=== PATIENT | female | born 1970 | race Caucasian/White ===

== ENCOUNTER 2019-12-09 09:29 | Emergency (ER) | payer BC ==
[2019-12-09 09:38] VITALS: BP 162/96
[2019-12-09] MEDS ORDERED: DEXAMETHASONE 10 MG/ML VIAL PO STA (09:51)
[2019-12-09] MEDS ORDERED: CHERRY SYRUP 10 ML UDC PO ONE (09:51)
--- NOTE | 2019-12-09 09:54 | ED Physician Documentation ---
PD HPI URI - Stated complaint Stated Complaint: COUGH, EAR PX - Chief complaint Chief Complaint: Heent - History obtained from History obtained from: Patient, Family - History of Present Illness Timing - onset: How many days ago (15) Timing duration: Days (15) Timing details: Gradual onset, Still present Associated symptoms: Ear pain, Nasal congestion, Rhinorrhea, Sinus pain, Sore throat, Dry cough Contributing factors: Sick contact Improves by: Rest, Medication Similar symptoms before: Diagnosis (sinusitis and bronchitis) Recently seen: Not recently seen - Additional information Additional information: 49-year-old female with a history of asthma has been around her grandchildren and she got a cold more than 2 weeks ago as did her . He recovered in about a week and she has had persistence of symptoms and now has pressure and pain in her sinuses and a headache on the left side including pain in the left ear. Her sore throat is improved she has not had to use her inhaler with this illness and she is not producing any phlegm. She does have a lot of pressure in both her frontal and maxillary sinuses. She has been taking a lot of Sudafed. Review of Systems Constitutional: reports: Myalgias, Fatigue. denies: Fever, Chills Eyes: denies: Decreased vision Ears: reports: Ear pain Nose: reports: Rhinorrhea / runny nose, Congestion Throat: reports: Sore throat Cardiac: denies: Chest pain / pressure, Palpitations Respiratory: reports: Cough, Wheezing. denies: Dyspnea GI: denies: Abdominal Pain, Nausea, Vomiting : denies: Dysuria PD PAST MEDICAL HISTORY - Present Medications Home Medications: Ambulatory Orders Medication Instructions Recorded Confirmed Acetaminophen [Tylenol] 650 mg PO ONCE 12/09/19 12/09/19 Azithromycin [Zithromax] 250 mg PO DAILY #6 tablet 12/09/19 Hydrocodone/Acetaminophen 1 each PO ONCE PRN 12/09/19 12/09/19 [Hydrocodone-Acetamin 5-325 mg] Pseudoephedrine [Sudafed] 60 mg PO ONCE 12/09/19 12/09/19 - Allergies Allergies/Adverse Reactions: Allergies Allergy/AdvReac Type Severity Reaction Status Date / Time amoxicillin AdvReac Nausea Verified 12/09/19 09:38 codeine AdvReac Nausea Verified 12/09/19 09:38 PD ED PE NORMAL - Vitals Vital signs reviewed: Yes (hypertensive ) - General General: Alert and oriented X 3, No acute distress, Well developed/nourished - HEENT HEENT: Atraumatic, PERRL, EOMI, Other (The right TM is not visible secondary to cerumen the left TM appears clear it is partially obstructed by cerumen. The pharynx has some petechiae on the soft palate. There is point tenderness to the maxillary sinus on the left and less on the right. There is pressure to the frontal sinuses bilaterally.) - Neck Neck: Supple, no meningeal sign, No bony TTP - Cardiac Cardiac: RRR, No murmur - Respiratory Respiratory: No respiratory distress, Clear bilaterally - Abdomen Abdomen: Soft, Non tender - Back Back: No CVA TTP, No spinal TTP - Derm Derm: Normal color, Warm and dry, No rash - Extremities Extremities: No deformity, No tenderness to palpate, Normal ROM s pain, No edema, No calf tenderness / cord - Neuro Neuro: patch setter 2-12 intact, No motor deficit, No sensory deficit, Normal speech Eye Opening: Spontaneous Motor: Obeys Commands Verbal: Oriented GCS Score: 15 Results - Vitals Vitals: Vital Signs - 24 hr 12/09/19 09:34 Temperature 36.5 C Heart Rate 93 Respiratory 18 Rate Blood Pressure 162/96 H O2 Saturation 97 Oxygen O2 Source Room air PD MEDICAL DECISION MAKING - ED course Complexity details: considered differential, d/w patient, d/w family ED course: Previously well 49-year-old female with cough and congestion for 15 days duration appears now to have had a bimodal illness with sinusitis after a viral URI. 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 Departure - Departure Disposition: Home, Self Care Clinical Impression: Sinusitis Qualifiers: Sinusitis location: maxillary Chronicity: acute Recurrence: non-recurrent Qualified Code(s): J01.00 - Acute maxillary sinusitis, unspecified Condition: Stable Instructions: ED Sinusitis Abx Tx Follow-Up: Vera Patel MD [Primary Care Provider] - Prescriptions: Azithromycin [Zithromax] 250 mg PO DAILY #6 tablet
== END 2019-12-09 10:03 | disposition home or self-care (01) ==
LOC: ED 09:29
DX: J01.00 Acute maxillary sinusitis, unspecified (principal); J06.9 Acute upper respiratory infection, unspecified; H61.23 Impacted cerumen, bilateral
CPT/HCPCS: 99282; 99284; A9270

== ENCOUNTER 2020-08-20 15:13 | Outpatient (CLI) | payer BC | END 2020-08-20 15:14 | disposition short-term general hospital (02) | LOC: EMS 15:13 | PROVIDERS: ATTEND Surgery | DX: R07.9 Chest pain, unspecified (principal); R53.1 Weakness | CPT/HCPCS: A0425; A0427 ==

== ENCOUNTER 2020-08-26 07:38 | Outpatient (CLI) | payer BC | END 2020-08-26 07:39 | disposition short-term general hospital (02) | LOC: EMS 07:38 | PROVIDERS: ATTEND Surgery | DX: R07.89 Other chest pain (principal) | CPT/HCPCS: A0425; A0427 ==

== ENCOUNTER 2021-12-30 14:57 | Outpatient (CLI) | payer OTHER | END 2021-12-30 14:58 | disposition left against medical advice (07) | LOC: EMS 14:57 | DX: I10 Essential (primary) hypertension (principal); F41.9 Anxiety disorder, unspecified ==

== ENCOUNTER 2021-12-30 16:22 | Emergency (ER) | payer BC, OTHER ==
--- NOTE | 2021-12-30 17:12 | ED Physician Documentation ---
History of Present Illness - Stated complaint Stated Complaint: HIGH BLOOD PRESSURE/POUNDING IN EARS - Chief complaint Chief Complaint: Cardiac - History obtained from History obtained from: Patient - Additonal information Additional information: 51 yo female with Hx STEMI and HTN presents with elevated BPs. Had pulsing in ears last night, better today. Took BP today at 143/84. Got nervous. No CP or SOA. Meds Lorazepam 0.5mg BID Metoprolol 100mg daily ASA 81 daily atorva 80mg daily Review of Systems Constitutional: denies: Fever, Chills Eyes: reports: Reviewed and negative Cardiac: denies: Chest pain / pressure, Palpitations Respiratory: denies: Dyspnea, Cough PD PAST MEDICAL HISTORY - Past Medical History Past Medical History: Yes Cardiovascular: Hypertension, [place] - Present Medications Home Medications: Ambulatory Orders Medication Instructions Recorded Confirmed Acetaminophen [Tylenol] 650 mg PO ONCE 12/09/19 12/09/19 Azithromycin [Zithromax] 250 mg PO DAILY #6 tablet 12/09/19 Hydrocodone/Acetaminophen 1 each PO ONCE PRN 12/09/19 12/09/19 [Hydrocodone-Acetamin 5-325 mg] Pseudoephedrine [Sudafed] 60 mg PO ONCE 12/09/19 12/09/19 - Allergies Allergies/Adverse Reactions: Allergies Allergy/AdvReac Type Severity Reaction Status Date / Time pregabalin [From Lyrica] Allergy Unknown Verified 12/30/21 16:35 amoxicillin AdvReac Nausea Verified 12/30/21 16:35 codeine AdvReac Nausea Verified 12/30/21 16:35 - Social History Does the pt smoke?: No - Family History Family history: reports: Non contributory PD ED PE NORMAL - Vitals Vital signs reviewed: Yes - General General: Alert and oriented X 3, No acute distress - Neck Neck: Supple, no meningeal sign, No bony TTP - Cardiac Cardiac: RRR, No murmur - Respiratory Respiratory: No respiratory distress, Clear bilaterally - Abdomen Abdomen: Non tender, Non distended - Back Back: No CVA TTP, No spinal TTP - Derm Derm: Normal color, Warm and dry - Neuro Neuro: Alert and oriented X 3, Normal speech Eye Opening: Spontaneous Motor: Obeys Commands Verbal: Oriented GCS Score: 15 Results - Vitals Vitals: Vital Signs - 24 hr 12/30/21 12/30/21 16:28 16:35 Temperature 36.7 C 36.7 C Heart Rate 77 77 Respiratory 18 18 Rate Blood Pressure 152/78 H 152/78 H O2 Saturation 98 98 Oxygen O2 Source Room air - EKG (time done) 1813 Rate: Rate (enter#) (61) Rhythm: NSR [place]: Normal Intervals: Normal [place] QRS: Normal Ischemia: Non specific changes PD MEDICAL DECISION MAKING - ED course ED course: 51-year-old woman with elevated blood pressure. She has a history of CA and is under a lot of stress. She had pulsing in her ears last night but this is gone. No ischemic changes on EKG and no chest pain or sweating. She was on losartan previously and may restart this,. Departure - Departure Disposition: 01 Home, Self Care Clinical Impression: Elevated blood pressure reading Condition: Good Record reviewed to determine appropriate education?: Yes Instructions: ED HTN Established Comments: If blood pressure remains elevated, you can start taking your losartan again. Otherwise continue current medications, focus on stress control and low salt diet. Return for new or worsening symptoms. Follow-up with your primary care physician.
[2021-12-30 18:55] VITALS: BP 138/93
== END 2021-12-30 18:55 | disposition home or self-care (01) ==
LOC: ED 16:22
DX: I10 Essential (primary) hypertension (principal); I25.2 Old myocardial infarction
CPT/HCPCS: 93005; 99282; 99283

== ENCOUNTER 2022-02-21 15:17 | Emergency (ER) | payer OTHER ==
[2022-02-21 15:44] LABS: BASOPHILS % (AUTO) 0.4 %; EOSINOPHILS # (AUTO) 0.1 10^3/uL (0.0-0.7); HCT - HEMATOCRIT 45.2 % (37.0-47.0); HGB - HEMOGLOBIN 14.4 g/dL (12.0-16.0); LYMPHOCYTES # (AUTO) 1.8 10^3/uL (1.5-3.5); LYMPHOCYTES % (AUTO) 25.6 %; MEAN CORPUSCULAR HEMOGLOBIN 29.6 pg (27.0-31.0); MEAN CORPUSCULAR HGB CONC 31.9 g/dL (32.0-36.0); MEAN CORPUSCULAR VOLUME 92.8 fL (81.0-99.0); MEAN PLATELET VOLUME 9.4 fL (7.9-10.8); MONOCYTES # (AUTO) 0.4 10^3/uL (0.0-1.0); NEUTROPHILS # (AUTO) 4.8 10^3/uL (1.5-6.6); NEUTROPHILS % (AUTO) 66.9 %; PLT - PLATELET COUNT 290 10^3/uL (130-450); RED BLOOD COUNT 4.87 10^6/uL (4.20-5.40); RED CELL DISTRIBUTION WIDTH 12.1 % (12.0-15.0); WHITE BLOOD COUNT 7.1 x10^3/uL (4.8-10.8)
--- NOTE | 2022-02-21 15:49 | ED Physician Documentation ---
History of Present Illness - Stated complaint Stated Complaint: CHEST DISCOMFORT - Chief complaint Chief Complaint: Cardiac - Additonal information Additional information: 51-year-old female presents to the emergency department for evaluation of chest discomfort. She reports having a STEMI approximately 18 months ago. She has 1 stent in her LAD. She was treated at [facility]. Due to a history of anxiety and PTSD she states that she always has some chest discomfort. She typically takes lorazepam 0.5 mg daily to help manage this. But over the last few days she has had more chest discomfort then she otherwise would. She noticed yesterday with activities that it got worse so she went to a local walk-in clinic where she had an EKG done that she was reportedly told was normal but was advised to come to the ER. Patient's father at 48 of a STEMI. Patient is not a smoker. She is followed by Dr. Dumont healthcare customer service through [facility]. She is scheduled to undergo nuclear stress test at the end of February. Meds: Aspirin 81 mg daily, metoprolol, 80 mg statin daily, as needed lorazepam, as needed hydrocodone. Review of Systems Constitutional: reports: Reviewed and negative Ears: reports: Reviewed and negative Nose: reports: Reviewed and negative Throat: reports: Reviewed and negative Cardiac: reports: Chest pain / pressure. denies: Palpitations, Pedal edema, Calf pain Respiratory: denies: Dyspnea GI: denies: Nausea, Vomiting : reports: Reviewed and negative Skin: reports: Reviewed and negative Musculoskeletal: reports: Reviewed and negative PD PAST MEDICAL HISTORY - Past Medical History Past Medical History: Yes Cardiovascular: Hypertension, [place] - Present Medications Home Medications: Ambulatory Orders Medication Instructions Recorded Confirmed Acetaminophen [Tylenol] 650 mg PO ONCE 12/09/19 12/09/19 Azithromycin [Zithromax] 250 mg PO DAILY #6 tablet 12/09/19 Hydrocodone/Acetaminophen 1 each PO ONCE PRN 12/09/19 12/09/19 [Hydrocodone-Acetamin 5-325 mg] Pseudoephedrine [Sudafed] 60 mg PO ONCE 12/09/19 12/09/19 - Allergies Allergies/Adverse Reactions: Allergies Allergy/AdvReac Type Severity Reaction Status Date / Time pregabalin [From Lyrica] Allergy Unknown Verified 02/21/22 15:19 amoxicillin AdvReac Nausea Verified 02/21/22 15:19 codeine AdvReac Nausea Verified 02/21/22 15:19 - Social History Does the pt smoke?: No Smoking Status: Never smoker Does the pt drink ETOH?: No Does the pt have substance abuse?: No - Immunizations Immunizations are current?: No PD ED PE NORMAL - General General: Alert and oriented X 3, No acute distress, Well developed/nourished - Cardiac Cardiac: RRR, No murmur, No gallop - Respiratory Respiratory: No respiratory distress, Clear bilaterally - Abdomen Abdomen: Soft, Non tender - Derm Derm: Normal color, Warm and dry, No rash - Extremities Extremities: No deformity, No tenderness to palpate, Normal ROM s pain - Neuro Neuro: Alert and oriented X 3, 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 Eye Opening: Spontaneous Motor: Obeys Commands Verbal: Oriented GCS Score: 15 - Psych Psych: Normal mood Results - Vitals Vitals: Vital Signs - 24 hr 02/21/22 02/21/22 15:20 15:43 Temperature 36.5 C Heart Rate 73 64 Respiratory 16 16 Rate Blood Pressure 147/83 H O2 Saturation 100 100 Oxygen O2 Source Room air - EKG (time done) 1533 Rate: Rate (enter#) (68) Rhythm: NSR [place]: Normal Intervals: Prolonged [place], Prolonged QT Ischemia: Non specific changes Compare to prior EKG: Old EKG unavailable Computer interpretation: Agree with computer - Labs Labs: Laboratory Tests 02/21/22 02/21/22 02/21/22 15:37 15:37 15:37 WBC 7.1 RBC 4.87 Hgb 14.4 Hct 45.2 MCV 92.8 MCH 29.6 MCHC 31.9 L RDW 12.1 Plt Count 290 MPV 9.4 Neut # (Auto) 4.8 Lymph # (Auto) 1.8 Stone # (Auto) 0.4 Eos # (Auto) 0.1 Baso # (Auto) 0.0 Absolute Nucleated RBC 0.00 Nucleated RBC % 0.0 Sodium 138 Potassium 3.7 Chloride 101 Carbon Dioxide 28 Anion Gap 9.0 BUN 18 Creatinine 0.6 Estimated GFR (MDRD) 105 Glucose 103 H Calcium 9.4 Total Bilirubin 0.9 AST 23 ALT 31 Alkaline Phosphatase 66 Troponin I High Sens < 2.3 L Total Protein 7.0 Albumin 4.2 Globulin 2.8 Albumin/Globulin Ratio 1.5 Lipase 32 - Rads (name of study) cxr Radiology: Final report received (No acute cardiopulmonary process) PD MEDICAL DECISION MAKING - ED course Complexity details: reviewed results, re-evaluated patient, considered differential, d/w patient ED course: 51-year-old female presents to the emergency department for evaluation of some chest discomfort. She has a history of a STEMI approximately 18 months ago. Her family of of a heart attack at 48. She does have a stent in her LAD and is compliant with all her medications. Non-smoker. She also reports a history of anxiety and PTSD which does manifest for her as chest pain and due to this she takes hydrocodone and lorazepam daily. 9 screening EKG is nonischemic today. Screening labs without worrisome findings. High-sensitivity troponin is negative. Patient is followed by [facility] cardiology and is scheduled to undergo a nuclear med stress test in less than 3 weeks time. Emergent return precautions were discussed for worsening symptoms. Departure - Departure Disposition: 01 Home, Self Care Clinical Impression: Chest discomfort Condition: Stable Record reviewed to determine appropriate education?: Yes Comments: Shawna you were seen today in the emergency department for chest discomfort. As you discussed with me your anxiety and stress often manifest as chest discomfort and your symptoms are not new today just more frequent. Your screening EKG, labs and chest x-ray are all essentially normal. Your troponin is also negative. Please discuss this ED visit with your healthcare customer service. You should continue to follow-up for your stress test in a few weeks time.
[2022-02-21 15:57] LABS: ALBUMIN 4.2 g/dL (3.2-5.5); ALBUMIN/GLOBULIN RATIO 1.5 (1.0-2.2); BILIRUBIN,TOTAL 0.9 mg/dL (0.2-1.0); CALCIUM 9.4 mg/dL (8.5-10.3); CREATININE 0.6 mg/dL (0.4-1.0); POTASSIUM 3.7 mmol/L (3.5-5.0)
--- NOTE | 2022-02-21 16:10 | XRAY Report ---
PROCEDURE: Chest 1 View X-Ray INDICATIONS: Chest pain TECHNIQUE: One view of the chest was acquired. COMPARISON: None FINDINGS: Surgical changes and devices: None. Lungs and pleura: No pleural effusions or pneumothorax. Lungs are clear. Mediastinum: Mediastinal contours appear normal. Heart size is mildly enlarged for portable techniq ue. Bones and chest wall: No suspicious bony lesions. Overlying soft tissues appear unremarkable. IMPRESSION: Clear lungs. Mild thyromegaly. Reviewed by: Eleno Ibarra MD on 02/21/2022 3:08 PM AKDT Approved by: Eleon Ibarra MD on 02/21/2022 3:08 PM ROBIN Station ID: [id number]
[2022-02-21 16:52] VITALS: BP 134/81
== END 2022-02-21 16:50 | disposition home or self-care (01) ==
LOC: ED 15:17
DX: R07.9 Chest pain, unspecified (principal); Z95.5 Presence of coronary angioplasty implant and graft; I10 Essential (primary) hypertension
CPT/HCPCS: 36415; 80053; 83690; 84484; 85025; 93005; 99283; 99284

== ENCOUNTER 2023-07-02 20:13 | Outpatient (CLI) | payer OTHER | END 2023-07-02 23:59 | disposition left against medical advice (07) | LOC: EMS 20:13 | DX: R58 Hemorrhage, not elsewhere classified (principal); Z79.01 Long term (current) use of anticoagulants ==

== ENCOUNTER 2023-07-02 21:31 | Emergency (ER) | payer OTHER ==
[2023-07-02 21:41] VITALS: BP 140/88; O2SAT 100
--- NOTE | 2023-07-02 22:18 | ED Physician Documentation ---
PD HPI SKIN - Stated complaint Stated Complaint: FACE INJ - Chief complaint Chief Complaint: Wound - History obtained from History obtained from: Patient - Additional information Additional information: 53yF presents to the ED with small punctate area of bleeding just right of her nose after hitting it yesterday and trying to wash her face today. patient is on antiplatelet medication. denies other injury. PD PAST MEDICAL HISTORY - Past Medical History Past Medical History: Yes Cardiovascular: Hypertension, [place] - Past Surgical History Past Surgical History: Yes Cardiovascular: Coronary stent - Present Medications Home Medications: Ambulatory Orders Medication Instructions Recorded Confirmed Hydrocodone/Acetaminophen 1 each PO ONCE PRN 12/09/19 07/02/23 [Hydrocodone-Acetamin 5-325 mg] Aspirin Chewable [[place] 81 mg PO DAILY 07/02/23 07/02/23 Aspirin] Cholecalciferol (Vitamin D3) 1 cap PO DAILY 07/02/23 07/02/23 [Vitamin D3] Evolocumab [Repatha Syringe] SUBQ 07/02/23 LORazepam [Ativan] 1 tab PO BID PRN 07/02/23 07/02/23 Metoprolol Tartrate [Lopressor] 50 mg PO BID 07/02/23 07/02/23 Prasugrel HCl 10 mg PO DAILY 07/02/23 07/02/23 - Allergies Allergies/Adverse Reactions: Allergies Allergy/AdvReac Type Severity Reaction Status Date / Time pregabalin [From Lyrica] Allergy Unknown Verified 07/02/23 21:36 amoxicillin AdvReac Nausea Verified 07/02/23 21:36 codeine AdvReac Nausea Verified 07/02/23 21:36 - Social History Does the pt smoke?: No Smoking Status: Never smoker Does the pt drink ETOH?: No Does the pt have substance abuse?: No - Immunizations Immunizations are current?: Yes - POLST Patient has POLST: No PD ED PE NORMAL - Vitals Vital signs reviewed: Yes - General General: Alert and oriented X 3, No acute distress, Well developed/nourished - HEENT HEENT: Atraumatic, PERRL, EOMI, Other (Punctate area of bleeding just right of nasal bridge, well controlled after application of direct pressure) Results - Vitals Vitals: Vital Signs - 24 hr 07/02/23 21:36 Temperature 36.5 C Heart Rate 70 Respiratory 16 Rate Blood Pressure 140/88 H O2 Saturation 100 Oxygen O2 Source Room air PD Medical Decision Making - ED course ED course: 53yF on antiplatelet p/w punctate area of bleeding to R face just lateral to nasal bridge after hitting it yesterday. bleeding resolved with xeroform application and direct pressure/bandaid. return precautions given. f/u pcp. Departure - Departure Disposition: Home, Self Care Clinical Impression: Bleeding Condition: Good Instructions: Prasugrel oral tablets Comments: You are seen in the emergency department for a tiny area of bleeding on the face likely exacerbated by your blood thinner. Follow-up with your primary care provider routinely. Return to the emergency department if you start to bleed again and it does not resolve after 15 minutes of direct pressure. Do not wash your face or remove bandage for 48 hours.
== END 2023-07-02 22:22 | disposition home or self-care (01) ==
LOC: ED 21:31
DX: R58 Hemorrhage, not elsewhere classified (principal); Z79.01 Long term (current) use of anticoagulants
CPT/HCPCS: 99281; 99283

== ENCOUNTER 2024-05-08 00:12 | Outpatient (CLI) | payer OTHER | END 2024-05-08 23:59 | disposition short-term general hospital (02) | LOC: EMS 00:12 | DX: R00.2 Palpitations (principal); I49.8 Other specified cardiac arrhythmias; R03.0 Elevated blood-pressure reading, without diagnosis of hypertension | CPT/HCPCS: A0425; A0427 ==